=== PATIENT | male | born 1940 | race Caucasian/White ===

== ENCOUNTER 2020-10-06 14:06 | Inpatient (IN) ==
[2020-10-06] MEDS ORDERED: *HR* Warfarin 5 MG TABLET PO SCH (20:15)
[2020-10-07 06:38] LABS: Basophils % 0.1 %; Eosinophils # 0.2 K/mcL (0.0-0.6); Eosinophils % 2.9 %; Hematocrit 37.3 % (37.5-50.1); Hemoglobin 12.1 g/dL (12.9-16.9); Immature Granulocytes % 0.6 % (0-4); Lymphocytes # 1.1 K/mcL (0.6-4.6); Lymphocytes % 13.6 %; Mean Corpuscular HGB Conc 32.4 g/dL (31.6-35.5); Mean Corpuscular Hemoglobin 30.8 pg (28.0-33.3); Mean Corpuscular Volume 94.9 fL (83.0-100.0); Mean Platelet Volume 12.9 fL (9.4-12.4); Monocytes # 0.8 K/mcL (0.0-1.3); Monocytes % 9.3 %; Neutrophils # 6.1 K/mcL (1.6-8.9); Platelet Count 187 K/mcL (140-400); Red Blood Count 3.93 M/mcL (4.19-5.50); Red Cell Distribution Width 14.9 % (11.5-14.5); Segmented Neutrophils % 73.5 %; White Blood Count 8.3 K/mcL (4.3-11.1)
[2020-10-07 06:56] LABS: BUN/Creatinine Ratio 19 (6-26); Blood Urea Nitrogen 24 mg/dL (8-23); Calcium 8.3 mg/dL (8.6-10.3); Carbon Dioxide 28 mEq/L (23-29); Chloride 104 mEq/L (98-107); Glucose 120 mg/dL (70-105); Osmolality,Calculated 299 (280-300); Potassium 3.9 mEq/L (3.5-5.1); Sodium 142 mEq/L (136-145); eGFR For African Americans > 60 (> 60); eGFR For Non-African Americans 56 (> 60)
[2020-10-07] MEDS ORDERED: Warfarin perPT PO PRN (07:59)
[2020-10-07] MEDS: Zinc Sulfate 220 MG CAPSULE PO SCH (08:50)
[2020-10-07] MEDS: Ascorbic Acid 500 MG TABLET PO SCH (08:50)
[2020-10-07] MEDS: Metoprolol XL (24 HR) Succ 50 MG TAB.ER.24H PO SCH (08:50)
[2020-10-07] MEDS: Cholecalciferol (D-3) 1,000 UNIT (25MCG) TABLET PO SCH (08:50)
[2020-10-07] MEDS: Aspirin Enteric Coated 81 MG Tablet PO SCH (08:50)
[2020-10-07] MEDS: Multivit/Ca/Min/Fe/FA 1 TAB TABLET PO SCH (08:50)
[2020-10-07] MEDS: BuPROPion SR (12 HR) 150 MG TABLET PO SCH (08:51)
[2020-10-07] MEDS: amLODIPine 5 MG TABLET PO SCH (08:51)
[2020-10-07] MEDS: *HR* Metformin 500 MG TABLET PO SCH ×2 (08:53→11:51)
[2020-10-07 11:07] LABS: INR 2.7; Prothrombin Time 30.5 Seconds (9.4-12.1)
[2020-10-07] MEDS ORDERED: *HR* Warfarin 2 MG TABLET PO ONE (18:00)
[2020-10-07] MEDS ORDERED: *HR* Warfarin 2.5 MG TABLET PO ONE (18:00)
[2020-10-08] MEDS: Ondansetron ODT 4 MG TAB.RAPDIS SL PRN ×2 (06:24→20:46)
[2020-10-08] MEDS: Aspirin Enteric Coated 81 MG Tablet PO SCH (09:20)
[2020-10-08] MEDS: Cholecalciferol (D-3) 1,000 UNIT (25MCG) TABLET PO SCH (09:20)
[2020-10-08] MEDS: Ascorbic Acid 500 MG TABLET PO SCH (09:20)
[2020-10-08] MEDS: Metoprolol XL (24 HR) Succ 50 MG TAB.ER.24H PO SCH (09:20)
[2020-10-08] MEDS: BuPROPion SR (12 HR) 150 MG TABLET PO SCH (09:21)
[2020-10-08] MEDS: amLODIPine 5 MG TABLET PO SCH (09:21)
[2020-10-08] MEDS: Zinc Sulfate 220 MG CAPSULE PO SCH (09:21)
[2020-10-08] MEDS: Multivit/Ca/Min/Fe/FA 1 TAB TABLET PO SCH (09:21)
[2020-10-08 09:46] LABS: INR 3.1; Prothrombin Time 34.8 Seconds (9.4-12.1)
[2020-10-08] MEDS ORDERED: *HR* Dextrose 50 % in Water (Vial) 50 ML VIAL IVP PRN (10:57)
[2020-10-08] MEDS ORDERED: Dextrose Gel 15 GM/37.5 ML TUBE PO PRN ×2 (10:57)
[2020-10-08] MEDS ORDERED: D5% in Water 1,000 ML IVC PRN (10:57)
[2020-10-08 12:17] LABS: Albumin 3.3 g/dL (3.5-5.7); Albumin/Globulin Ratio 1.3 (1.1-2.2); Bilirubin,Total 1.4 mg/dL (0.3-1.0); Calcium 8.8 mg/dL (8.6-10.3); Globulin 2.6 g/dL (2.4-3.5); Potassium 4.4 mEq/L (3.5-5.1); Total Protein 5.9 g/dL (6.4-8.9)
[2020-10-08] MEDS: Insulin LISPRO 300 UNITS/3 ML VIAL SUBQ SCH ×2 (12:30→17:15)
[2020-10-08] MEDS ORDERED: *HR* Warfarin 7.5 MG TABLET PO SCH (18:00)
[2020-10-09 07:41] LABS: INR 3.8; Prothrombin Time 42.1 Seconds (9.4-12.1)
[2020-10-09] MEDS: amLODIPine 5 MG TABLET PO SCH (09:07)
[2020-10-09] MEDS: Metoprolol XL (24 HR) Succ 50 MG TAB.ER.24H PO SCH (09:07)
[2020-10-09] MEDS: Zinc Sulfate 220 MG CAPSULE PO SCH (09:08)
[2020-10-09] MEDS: BuPROPion SR (12 HR) 150 MG TABLET PO SCH (09:08)
[2020-10-09] MEDS: Multivit/Ca/Min/Fe/FA 1 TAB TABLET PO SCH (09:08)
[2020-10-09] MEDS: Ascorbic Acid 500 MG TABLET PO SCH (09:08)
[2020-10-09] MEDS: Aspirin Enteric Coated 81 MG Tablet PO SCH (09:08)
[2020-10-09] MEDS: Cholecalciferol (D-3) 1,000 UNIT (25MCG) TABLET PO SCH (09:08)
[2020-10-09] MEDS: Insulin LISPRO 300 UNITS/3 ML VIAL SUBQ SCH ×3 (09:09→18:01)
[2020-10-10 06:26] LABS: INR 2.7
[2020-10-10 06:27] LABS: Prothrombin Time 29.9 Seconds (9.4-12.1)
[2020-10-10] MEDS: Insulin LISPRO 300 UNITS/3 ML VIAL SUBQ SCH ×3 (08:58→16:56)
[2020-10-10] MEDS: Zinc Sulfate 220 MG CAPSULE PO SCH (09:00)
[2020-10-10] MEDS: Metoprolol XL (24 HR) Succ 50 MG TAB.ER.24H PO SCH (09:00)
[2020-10-10] MEDS: amLODIPine 5 MG TABLET PO SCH (09:00)
[2020-10-10] MEDS: BuPROPion SR (12 HR) 150 MG TABLET PO SCH (09:00)
[2020-10-10] MEDS: Ascorbic Acid 500 MG TABLET PO SCH (09:00)
[2020-10-10] MEDS: Cholecalciferol (D-3) 1,000 UNIT (25MCG) TABLET PO SCH (09:00)
[2020-10-10] MEDS: Aspirin Enteric Coated 81 MG Tablet PO SCH (09:00)
[2020-10-10] MEDS: Multivit/Ca/Min/Fe/FA 1 TAB TABLET PO SCH (09:01)
[2020-10-11 08:16] LABS: INR 2.5
[2020-10-11] MEDS: Insulin LISPRO 300 UNITS/3 ML VIAL SUBQ SCH ×3 (09:48→17:03)
[2020-10-11] MEDS: Zinc Sulfate 220 MG CAPSULE PO SCH (10:03)
[2020-10-11] MEDS: BuPROPion SR (12 HR) 150 MG TABLET PO SCH (10:03)
[2020-10-11] MEDS: Ascorbic Acid 500 MG TABLET PO SCH (10:03)
[2020-10-11] MEDS: Cholecalciferol (D-3) 1,000 UNIT (25MCG) TABLET PO SCH (10:03)
[2020-10-11] MEDS: Multivit/Ca/Min/Fe/FA 1 TAB TABLET PO SCH (10:03)
[2020-10-11] MEDS: Aspirin Enteric Coated 81 MG Tablet PO SCH (10:03)
[2020-10-11] MEDS: Metoprolol XL (24 HR) Succ 50 MG TAB.ER.24H PO SCH (10:06)
[2020-10-11] MEDS: amLODIPine 5 MG TABLET PO SCH (10:06)
[2020-10-11] MEDS ORDERED: Sennosides/Docusate Sodium TABLET PO ONE (13:16)
[2020-10-11] MEDS ORDERED: *HR* Warfarin 1 MG TABLET PO ONE (18:00)
[2020-10-12 06:58] LABS: INR 2.2; Prothrombin Time 24.9 Seconds (9.4-12.1)
[2020-10-12] MEDS: Insulin LISPRO 300 UNITS/3 ML VIAL SUBQ SCH ×3 (08:40→16:42)
[2020-10-12] MEDS: Aspirin Enteric Coated 81 MG Tablet PO SCH (08:40)
[2020-10-12] MEDS: Ascorbic Acid 500 MG TABLET PO SCH (08:40)
[2020-10-12] MEDS: Cholecalciferol (D-3) 1,000 UNIT (25MCG) TABLET PO SCH (08:40)
[2020-10-12] MEDS: Metoprolol XL (24 HR) Succ 50 MG TAB.ER.24H PO SCH (08:41)
[2020-10-12] MEDS: BuPROPion SR (12 HR) 150 MG TABLET PO SCH (08:41)
[2020-10-12] MEDS: amLODIPine 5 MG TABLET PO SCH (08:41)
[2020-10-12] MEDS: Zinc Sulfate 220 MG CAPSULE PO SCH (08:41)
[2020-10-12] MEDS: Multivit/Ca/Min/Fe/FA 1 TAB TABLET PO SCH (08:41)
[2020-10-12] MEDS ORDERED: Bisacodyl 10 MG RECTAL SUPPOSITORY RC PRN (16:29)
[2020-10-12] MEDS ORDERED: *HR* Warfarin 1 MG TABLET PO ONE (18:00)
[2020-10-12] MEDS: polyethylene glycoL 3350 17 GM POWD.PACK PO PRN (22:20)
[2020-10-12] MEDS: Ondansetron ODT 4 MG TAB.RAPDIS SL PRN (22:23)
[2020-10-13 07:19] LABS: INR 2.2; Prothrombin Time 25.1 Seconds (9.4-12.1)
[2020-10-13 08:59] LABS: Basophils % 0.3 %; Eosinophils # 0.5 K/mcL (0.0-0.6); Hematocrit 37.2 % (37.5-50.1); Hemoglobin 12.2 g/dL (12.9-16.9); Immature Granulocytes % 0.2 % (0-4); Lymphocytes # 1.4 K/mcL (0.6-4.6); Lymphocytes % 21.5 %; Mean Corpuscular HGB Conc 32.8 g/dL (31.6-35.5); Mean Corpuscular Volume 94.7 fL (83.0-100.0); Monocytes # 0.6 K/mcL (0.0-1.3); Monocytes % 8.7 %; Platelet Count 111 K/mcL (140-400); Red Blood Count 3.93 M/mcL (4.19-5.50); Red Cell Distribution Width 15.4 % (11.5-14.5); Segmented Neutrophils % 62.3 %; White Blood Count 6.4 K/mcL (4.3-11.1)
[2020-10-13 09:07] LABS: BUN/Creatinine Ratio 20 (6-26); Blood Urea Nitrogen 26 mg/dL (8-23); Carbon Dioxide 31 mEq/L (23-29); Chloride 103 mEq/L (98-107); Glucose 125 mg/dL (70-105); Osmolality,Calculated 296 (280-300); Potassium 4.1 mEq/L (3.5-5.1); Sodium 140 mEq/L (136-145); eGFR For African Americans > 60 (> 60); eGFR For Non-African Americans 54 (> 60)
[2020-10-13] MEDS: Insulin LISPRO 300 UNITS/3 ML VIAL SUBQ SCH ×3 (10:35→16:35)
[2020-10-13] MEDS: Ascorbic Acid 500 MG TABLET PO SCH (10:37)
[2020-10-13] MEDS: BuPROPion SR (12 HR) 150 MG TABLET PO SCH (10:37)
[2020-10-13] MEDS: Cholecalciferol (D-3) 1,000 UNIT (25MCG) TABLET PO SCH (10:37)
[2020-10-13] MEDS: amLODIPine 5 MG TABLET PO SCH (10:37)
[2020-10-13] MEDS: Multivit/Ca/Min/Fe/FA 1 TAB TABLET PO SCH (10:37)
[2020-10-13] MEDS: Aspirin Enteric Coated 81 MG Tablet PO SCH (10:37)
[2020-10-13] MEDS: Metoprolol XL (24 HR) Succ 50 MG TAB.ER.24H PO SCH (10:38)
[2020-10-13] MEDS: Zinc Sulfate 220 MG CAPSULE PO SCH (10:38)
[2020-10-13] MEDS ORDERED: *HR* Warfarin 1 MG TABLET PO ONE (18:00)
[2020-10-14 07:16] LABS: INR 2.2; Prothrombin Time 25.2 Seconds (9.4-12.1)
[2020-10-14] MEDS: amLODIPine 5 MG TABLET PO SCH (09:37)
[2020-10-14] MEDS: Zinc Sulfate 220 MG CAPSULE PO SCH (09:38)
[2020-10-14] MEDS: Multivit/Ca/Min/Fe/FA 1 TAB TABLET PO SCH (09:38)
[2020-10-14] MEDS: Cholecalciferol (D-3) 1,000 UNIT (25MCG) TABLET PO SCH (09:38)
[2020-10-14] MEDS: Aspirin Enteric Coated 81 MG Tablet PO SCH (09:39)
[2020-10-14] MEDS: BuPROPion SR (12 HR) 150 MG TABLET PO SCH (09:39)
[2020-10-14] MEDS: Ascorbic Acid 500 MG TABLET PO SCH (09:39)
[2020-10-14] MEDS: Metoprolol XL (24 HR) Succ 50 MG TAB.ER.24H PO SCH (09:39)
[2020-10-14] MEDS: Insulin LISPRO 300 UNITS/3 ML VIAL SUBQ SCH ×3 (09:44→18:37)
[2020-10-14] MEDS ORDERED: *HR* Warfarin 1 MG TABLET PO ONE (18:00)
[2020-10-15 06:54] LABS: Prothrombin Time 22.7 Seconds (9.4-12.1)
[2020-10-15] MEDS: Insulin LISPRO 300 UNITS/3 ML VIAL SUBQ SCH ×3 (08:05→16:35)
[2020-10-15] MEDS: Metoprolol XL (24 HR) Succ 50 MG TAB.ER.24H PO SCH (09:58)
[2020-10-15] MEDS: Multivit/Ca/Min/Fe/FA 1 TAB TABLET PO SCH (09:58)
[2020-10-15] MEDS: amLODIPine 5 MG TABLET PO SCH (09:58)
[2020-10-15] MEDS: Aspirin Enteric Coated 81 MG Tablet PO SCH (09:58)
[2020-10-15] MEDS: Ascorbic Acid 500 MG TABLET PO SCH (09:59)
[2020-10-15] MEDS: Cholecalciferol (D-3) 1,000 UNIT (25MCG) TABLET PO SCH (09:59)
[2020-10-15] MEDS: Zinc Sulfate 220 MG CAPSULE PO SCH (09:59)
[2020-10-15] MEDS: BuPROPion SR (12 HR) 150 MG TABLET PO SCH (09:59)
[2020-10-15] MEDS ORDERED: methocarbamoL 500 MG TABLET PO PRN (11:07)
[2020-10-15] MEDS ORDERED: traZODone 50 MG TABLET PO PRN (14:16)
[2020-10-15 14:42] LABS: Basophils % 0.5 %; Eosinophils # 0.5 K/mcL (0.0-0.6); Eosinophils % 8.2 %; Hematocrit 39.4 % (37.5-50.1); Hemoglobin 12.9 g/dL (12.9-16.9); Immature Granulocytes % 0.5 % (0-4); Lymphocytes # 1.6 K/mcL (0.6-4.6); Lymphocytes % 24.8 %; Mean Corpuscular HGB Conc 32.7 g/dL (31.6-35.5); Mean Corpuscular Hemoglobin 31.2 pg (28.0-33.3); Mean Corpuscular Volume 95.2 fL (83.0-100.0); Mean Platelet Volume 12.2 fL (9.4-12.4); Monocytes # 0.5 K/mcL (0.0-1.3); Monocytes % 7.2 %; Neutrophils # 3.7 K/mcL (1.6-8.9); Platelet Count 118 K/mcL (140-400); Red Blood Count 4.14 M/mcL (4.19-5.50); Red Cell Distribution Width 16.1 % (11.5-14.5); Segmented Neutrophils % 58.8 %; White Blood Count 6.3 K/mcL (4.3-11.1)
[2020-10-15 15:00] LABS: Calcium 8.9 mg/dL (8.6-10.3); Magnesium 1.9 mg/dL (1.6-2.6); Potassium 4.3 mEq/L (3.5-5.1)
[2020-10-15] MEDS ORDERED: *HR* Warfarin 1 MG TABLET PO ONE (18:00)
[2020-10-16] MEDS: Multivit/Ca/Min/Fe/FA 1 TAB TABLET PO SCH (07:59)
[2020-10-16] MEDS: Ascorbic Acid 500 MG TABLET PO SCH (07:59)
[2020-10-16] MEDS: Zinc Sulfate 220 MG CAPSULE PO SCH (07:59)
[2020-10-16] MEDS: Aspirin Enteric Coated 81 MG Tablet PO SCH (07:59)
[2020-10-16] MEDS: Cholecalciferol (D-3) 1,000 UNIT (25MCG) TABLET PO SCH (07:59)
[2020-10-16] MEDS: BuPROPion SR (12 HR) 150 MG TABLET PO SCH (08:00)
[2020-10-16] MEDS: Insulin LISPRO 300 UNITS/3 ML VIAL SUBQ SCH ×3 (08:03→17:15)
[2020-10-16] MEDS: amLODIPine 5 MG TABLET PO SCH (08:04)
[2020-10-16] MEDS: Metoprolol XL (24 HR) Succ 50 MG TAB.ER.24H PO SCH (08:05)
[2020-10-16 08:09] LABS: INR 1.8; Prothrombin Time 20.2 Seconds (9.4-12.1)
[2020-10-16] MEDS: Ondansetron ODT 4 MG TAB.RAPDIS SL PRN (09:00)
[2020-10-16] MEDS: Metoprolol XL (24 HR) Succ 25 MG TAB.ER.24H PO SCH (10:11)
[2020-10-16] MEDS ORDERED: *HR* Warfarin 2 MG TABLET PO ONE (18:00)
[2020-10-16] MEDS: polyethylene glycoL 3350 17 GM POWD.PACK PO PRN (21:24)
[2020-10-17 06:58] LABS: INR 1.9; Prothrombin Time 21.3 Seconds (9.4-12.1)
[2020-10-17] MEDS: Insulin LISPRO 300 UNITS/3 ML VIAL SUBQ SCH ×3 (07:32→16:28)
[2020-10-17] MEDS: amLODIPine 5 MG TABLET PO SCH (09:22)
[2020-10-17] MEDS: Multivit/Ca/Min/Fe/FA 1 TAB TABLET PO SCH (09:22)
[2020-10-17] MEDS: BuPROPion SR (12 HR) 150 MG TABLET PO SCH (09:22)
[2020-10-17] MEDS: Zinc Sulfate 220 MG CAPSULE PO SCH (09:23)
[2020-10-17] MEDS: Aspirin Enteric Coated 81 MG Tablet PO SCH (09:23)
[2020-10-17] MEDS: Ascorbic Acid 500 MG TABLET PO SCH (09:23)
[2020-10-17] MEDS: Cholecalciferol (D-3) 1,000 UNIT (25MCG) TABLET PO SCH (09:23)
[2020-10-17] MEDS: Metoprolol XL (24 HR) Succ 25 MG TAB.ER.24H PO SCH (09:23)
[2020-10-17] MEDS ORDERED: *HR* Warfarin 2 MG TABLET PO ONE (18:00)
[2020-10-17] MEDS: Ondansetron ODT 4 MG TAB.RAPDIS SL PRN (20:02)
[2020-10-18 07:23] LABS: Prothrombin Time 22.6 Seconds (9.4-12.1)
[2020-10-18] MEDS: Insulin LISPRO 300 UNITS/3 ML VIAL SUBQ SCH ×3 (07:25→16:25)
[2020-10-18] MEDS: Aspirin Enteric Coated 81 MG Tablet PO SCH (09:00)
[2020-10-18] MEDS: Multivit/Ca/Min/Fe/FA 1 TAB TABLET PO SCH (09:00)
[2020-10-18] MEDS: Zinc Sulfate 220 MG CAPSULE PO SCH (09:00)
[2020-10-18] MEDS: Cholecalciferol (D-3) 1,000 UNIT (25MCG) TABLET PO SCH (09:01)
[2020-10-18] MEDS: amLODIPine 5 MG TABLET PO SCH (09:01)
[2020-10-18] MEDS: Ascorbic Acid 500 MG TABLET PO SCH (09:01)
[2020-10-18] MEDS: BuPROPion SR (12 HR) 150 MG TABLET PO SCH (09:01)
[2020-10-18] MEDS: Metoprolol XL (24 HR) Succ 25 MG TAB.ER.24H PO SCH (09:01)
[2020-10-18] MEDS ORDERED: *HR* Warfarin 2 MG TABLET PO ONE (18:00)
[2020-10-19 07:47] LABS: INR 2.1; Prothrombin Time 23.8 Seconds (9.4-12.1)
[2020-10-19] MEDS: Cholecalciferol (D-3) 1,000 UNIT (25MCG) TABLET PO SCH (08:31)
[2020-10-19] MEDS: Metoprolol XL (24 HR) Succ 25 MG TAB.ER.24H PO SCH (08:31)
[2020-10-19] MEDS: BuPROPion SR (12 HR) 150 MG TABLET PO SCH (08:31)
[2020-10-19] MEDS: Ascorbic Acid 500 MG TABLET PO SCH (08:31)
[2020-10-19] MEDS: amLODIPine 5 MG TABLET PO SCH (08:31)
[2020-10-19] MEDS: Aspirin Enteric Coated 81 MG Tablet PO SCH (08:32)
[2020-10-19] MEDS: Insulin LISPRO 300 UNITS/3 ML VIAL SUBQ SCH ×3 (08:32→16:39)
[2020-10-19] MEDS: Multivit/Ca/Min/Fe/FA 1 TAB TABLET PO SCH (08:32)
[2020-10-19] MEDS: Zinc Sulfate 220 MG CAPSULE PO SCH (08:32)
[2020-10-19] MEDS: Ondansetron ODT 4 MG TAB.RAPDIS SL PRN ×2 (09:22→23:40)
[2020-10-19] MEDS ORDERED: Bisacodyl 10 MG RECTAL SUPPOSITORY RC ONE (09:54)
[2020-10-19] MEDS ORDERED: *HR* Warfarin 2 MG TABLET PO ONE (18:00)
[2020-10-20] MEDS ORDERED: Ondansetron ODT 4 MG TAB.RAPDIS SL PRN (01:34)
[2020-10-20] MEDS: Insulin LISPRO 300 UNITS/3 ML VIAL SUBQ SCH ×3 (08:52→16:40)
[2020-10-20] MEDS: Aspirin Enteric Coated 81 MG Tablet PO SCH (10:44)
[2020-10-20] MEDS: amLODIPine 5 MG TABLET PO SCH (10:44)
[2020-10-20] MEDS: Ascorbic Acid 500 MG TABLET PO SCH (10:45)
[2020-10-20] MEDS: Cholecalciferol (D-3) 1,000 UNIT (25MCG) TABLET PO SCH (10:45)
[2020-10-20] MEDS: Multivit/Ca/Min/Fe/FA 1 TAB TABLET PO SCH (10:45)
[2020-10-20] MEDS: Zinc Sulfate 220 MG CAPSULE PO SCH (10:45)
[2020-10-20] MEDS: Metoprolol XL (24 HR) Succ 25 MG TAB.ER.24H PO SCH ×2 (10:45→14:02)
[2020-10-20] MEDS: BuPROPion SR (12 HR) 150 MG TABLET PO SCH (10:45)
[2020-10-20 12:05] LABS: Basophils % 0.2 %; Eosinophils # 0.1 K/mcL (0.0-0.6); Eosinophils % 1.6 %; Hematocrit 40.1 % (37.5-50.1); Hemoglobin 13.2 g/dL (12.9-16.9); Immature Granulocytes % 0.4 % (0-4); Lymphocytes # 0.9 K/mcL (0.6-4.6); Lymphocytes % 10.6 %; Mean Corpuscular HGB Conc 32.9 g/dL (31.6-35.5); Mean Corpuscular Hemoglobin 31.6 pg (28.0-33.3); Mean Corpuscular Volume 95.9 fL (83.0-100.0); Mean Platelet Volume 12.1 fL (9.4-12.4); Monocytes # 0.7 K/mcL (0.0-1.3); Monocytes % 8.5 %; Neutrophils # 6.4 K/mcL (1.6-8.9); Platelet Count 115 K/mcL (140-400); Red Blood Count 4.18 M/mcL (4.19-5.50); Segmented Neutrophils % 78.7 %; White Blood Count 8.1 K/mcL (4.3-11.1)
[2020-10-20 12:21] LABS: Albumin 3.4 g/dL (3.5-5.7); Albumin/Globulin Ratio 1.4 (1.1-2.2); Bilirubin,Total 1.5 mg/dL (0.3-1.0); Calcium 8.9 mg/dL (8.6-10.3); Globulin 2.5 g/dL (2.4-3.5); Potassium 4.5 mEq/L (3.5-5.1); Total Protein 5.9 g/dL (6.4-8.9)
[2020-10-20] MEDS ORDERED: 0.9 % Sodium Chloride 1,000 ML IV ONE ×2 (13:13→13:21)
[2020-10-20] MEDS ORDERED: *HR* Warfarin 2 MG TABLET PO ONE (18:00)
[2020-10-20] MEDS: 0.9 % Sodium Chloride 1,000 ML IVC SCH (19:27)
[2020-10-20] MEDS: Famotidine 20 MG TABLET PO SCH (20:40)
[2020-10-21] MEDS: 0.9 % Sodium Chloride 1,000 ML IVC SCH (04:00)
[2020-10-21] MEDS: Metoprolol XL (24 HR) Succ 25 MG TAB.ER.24H PO SCH (08:19)
[2020-10-21] MEDS: amLODIPine 5 MG TABLET PO SCH (08:19)
[2020-10-21] MEDS: Multivit/Ca/Min/Fe/FA 1 TAB TABLET PO SCH (08:19)
[2020-10-21] MEDS: Ascorbic Acid 500 MG TABLET PO SCH (08:19)
[2020-10-21] MEDS: Aspirin Enteric Coated 81 MG Tablet PO SCH (08:19)
[2020-10-21] MEDS: Cholecalciferol (D-3) 1,000 UNIT (25MCG) TABLET PO SCH (08:19)
[2020-10-21] MEDS: BuPROPion SR (12 HR) 150 MG TABLET PO SCH (08:19)
[2020-10-21] MEDS: Famotidine 20 MG TABLET PO SCH (08:19)
[2020-10-21] MEDS: Zinc Sulfate 220 MG CAPSULE PO SCH (08:19)
[2020-10-21] MEDS: Insulin LISPRO 300 UNITS/3 ML VIAL SUBQ SCH ×3 (08:20→17:01)
[2020-10-21 09:31] LABS: Basophils % 0.3 %; Eosinophils # 0.5 K/mcL (0.0-0.6); Eosinophils % 6.9 %; Hemoglobin 11.8 g/dL (12.9-16.9); Immature Granulocytes % 0.3 % (0-4); Lymphocytes # 1.3 K/mcL (0.6-4.6); Mean Corpuscular HGB Conc 31.9 g/dL (31.6-35.5); Mean Corpuscular Hemoglobin 31.6 pg (28.0-33.3); Mean Corpuscular Volume 98.9 fL (83.0-100.0); Mean Platelet Volume 12.4 fL (9.4-12.4); Monocytes # 0.8 K/mcL (0.0-1.3); Monocytes % 9.9 %; Platelet Count 114 K/mcL (140-400); Red Blood Count 3.74 M/mcL (4.19-5.50); Red Cell Distribution Width 17.4 % (11.5-14.5); Segmented Neutrophils % 65.6 %; White Blood Count 7.6 K/mcL (4.3-11.1)
[2020-10-21 09:47] LABS: Calcium 8.1 mg/dL (8.6-10.3); Potassium 3.9 mEq/L (3.5-5.1)
[2020-10-21] MEDS: Sucralfate 1 GM TABLET PO SCH ×2 (16:26→20:57)
[2020-10-21] MEDS ORDERED: *HR* Warfarin 2 MG TABLET PO ONE (18:00)
[2020-10-21] MEDS: Pantoprazole 40 MG VIAL IVP SCH (18:16)
[2020-10-22] MEDS: Sucralfate 1 GM TABLET PO SCH ×2 (05:40→13:35)
[2020-10-22] MEDS: Pantoprazole 40 MG VIAL IVP SCH (05:40)
[2020-10-22 07:24] LABS: INR 2.8; Prothrombin Time 31.2 Seconds (9.4-12.1)
[2020-10-22 07:35] VITALS: BP 122/92
[2020-10-22] MEDS: Insulin LISPRO 300 UNITS/3 ML VIAL SUBQ SCH ×2 (07:53→11:21)
[2020-10-22] MEDS: Multivit/Ca/Min/Fe/FA 1 TAB TABLET PO SCH (08:08)
[2020-10-22] MEDS: amLODIPine 5 MG TABLET PO SCH (08:08)
[2020-10-22] MEDS: Aspirin Enteric Coated 81 MG Tablet PO SCH (08:08)
[2020-10-22] MEDS: Metoprolol XL (24 HR) Succ 25 MG TAB.ER.24H PO SCH (08:08)
[2020-10-22] MEDS: Cholecalciferol (D-3) 1,000 UNIT (25MCG) TABLET PO SCH (08:09)
[2020-10-22] MEDS: Zinc Sulfate 220 MG CAPSULE PO SCH (08:09)
[2020-10-22] MEDS: BuPROPion SR (12 HR) 150 MG TABLET PO SCH (08:09)
[2020-10-22] MEDS: Ascorbic Acid 500 MG TABLET PO SCH (08:09)
[2020-10-22 08:50] LABS: Hematocrit 35.1 % (37.5-50.1); Hemoglobin 11.4 g/dL (12.9-16.9); Mean Corpuscular HGB Conc 32.5 g/dL (31.6-35.5); Mean Corpuscular Hemoglobin 31.6 pg (28.0-33.3); Mean Corpuscular Volume 97.2 fL (83.0-100.0); Mean Platelet Volume 12.2 fL (9.4-12.4); Platelet Count 117 K/mcL (140-400); Red Blood Count 3.61 M/mcL (4.19-5.50); Red Cell Distribution Width 16.8 % (11.5-14.5); White Blood Count 6.8 K/mcL (4.3-11.1)
[2020-10-22 08:57] LABS: BUN/Creatinine Ratio 17 (6-26); Blood Urea Nitrogen 21 mg/dL (8-23); Calcium 8.1 mg/dL (8.6-10.3); Carbon Dioxide 28 mEq/L (23-29); Chloride 107 mEq/L (98-107); Glucose 106 mg/dL (70-105); Osmolality,Calculated 301 (280-300); Potassium 3.8 mEq/L (3.5-5.1); Sodium 144 mEq/L (136-145); eGFR For African Americans > 60 (> 60); eGFR For Non-African Americans 55 (> 60)
[2020-10-22] MEDS ORDERED: *HR* Promethazine 25 MG/ML VIAL IM ONE (09:45)
[2020-10-22] MEDS ORDERED: 0.9 % Sodium Chloride 1,000 ML IVC SCH (12:45)
[2020-10-22] MEDS ORDERED: *HR* Warfarin 1 MG TABLET PO ONE (18:00)
== END 2020-10-22 16:32 | disposition short-term general hospital (02) | DRG 392 ==
LOC: INPPIK 18:55
PROVIDERS: ADMIT Family Medicine; ATTEND Family Medicine

== ENCOUNTER 2020-10-26 17:17 | Inpatient (IN) ==
[2020-10-26] MEDS ORDERED: *HR* Warfarin 5 MG TABLET PO SCH (19:00)
[2020-10-26] MEDS: Cholecalciferol (D-3) 1,000 UNIT (25MCG) TABLET PO SCH (20:24)
[2020-10-27 07:03] LABS: Basophils % 0.7 %; Eosinophils # 0.4 K/mcL (0.0-0.6); Eosinophils % 6.8 %; Hematocrit 34.9 % (37.5-50.1); Hemoglobin 11.1 g/dL (12.9-16.9); Immature Granulocytes % 0.7 % (0-4); Lymphocytes # 1.1 K/mcL (0.6-4.6); Mean Corpuscular HGB Conc 31.8 g/dL (31.6-35.5); Mean Corpuscular Hemoglobin 31.1 pg (28.0-33.3); Mean Corpuscular Volume 97.8 fL (83.0-100.0); Mean Platelet Volume 12.2 fL (9.4-12.4); Monocytes # 0.6 K/mcL (0.0-1.3); Monocytes % 9.2 %; Neutrophils # 3.8 K/mcL (1.6-8.9); Platelet Count 132 K/mcL (140-400); Red Blood Count 3.57 M/mcL (4.19-5.50); Red Cell Distribution Width 17.2 % (11.5-14.5); Segmented Neutrophils % 63.6 %
[2020-10-27 07:30] LABS: BUN/Creatinine Ratio 15 (6-26); Blood Urea Nitrogen 19 mg/dL (8-23); Calcium 7.9 mg/dL (8.6-10.3); Carbon Dioxide 29 mEq/L (23-29); Chloride 110 mEq/L (98-107); Glucose 106 mg/dL (70-105); Osmolality,Calculated 307 (280-300); Potassium 3.7 mEq/L (3.5-5.1); Sodium 147 mEq/L (136-145); eGFR For African Americans > 60 (> 60); eGFR For Non-African Americans 54 (> 60)
[2020-10-27 08:17] LABS: INR 4.2
[2020-10-27] MEDS: Tiotropium 10 INH DOSE IH SCH (08:21)
[2020-10-27] MEDS ORDERED: Zinc Sulfate 220 MG CAPSULE PO SCH (09:00)
[2020-10-27] MEDS: Cholecalciferol (D-3) 1,000 UNIT (25MCG) TABLET PO SCH ×3 (09:32→22:23)
[2020-10-27] MEDS: *HR* Metformin 500 MG TABLET PO SCH (09:32)
[2020-10-27] MEDS: hydroCHLOROthiazide 25 MG TABLET PO SCH ×2 (09:32→09:59)
[2020-10-27] MEDS: Aspirin Enteric Coated 81 MG Tablet PO SCH (09:33)
[2020-10-27] MEDS: Metoprolol XL (24 HR) Succ 50 MG TAB.ER.24H PO SCH (09:33)
[2020-10-27] MEDS: Multivit/Ca/Min/Fe/FA 1 TAB TABLET PO SCH (09:33)
[2020-10-27] MEDS: amLODIPine 5 MG TABLET PO SCH ×2 (09:33→10:00)
[2020-10-27] MEDS: BuPROPion SR (12 HR) 150 MG TABLET PO SCH (09:33)
[2020-10-27] MEDS ORDERED: Metoclopramide 10 MG/10 ML UD.LIQ PO PRN (09:35)
[2020-10-27] MEDS ORDERED: Bisacodyl 10 MG RECTAL SUPPOSITORY RC PRN (09:51)
[2020-10-27] MEDS ORDERED: polyethylene glycoL 3350 17 GM POWD.PACK PO PRN (09:51)
[2020-10-27] MEDS ORDERED: Ringers Solution, Lactated 500 ML IVC ONE (10:26)
[2020-10-27] MEDS: Metoclopramide 10 MG/10 ML UD.LIQ PO SCH ×3 (14:27→23:57)
[2020-10-27] MEDS: Ondansetron 4 MG/2 ML VIAL IVP PRN (14:29)
[2020-10-27] MEDS ORDERED: Warfarin perPT PO PRN (18:00)
[2020-10-27] MEDS ORDERED: *HR* Warfarin 7.5 MG TABLET PO SCH (18:49)
[2020-10-28] MEDS: Metoclopramide 10 MG/10 ML UD.LIQ PO SCH ×3 (05:29→18:06)
[2020-10-28 06:12] LABS: Phosphorous 2.5 mg/dL (2.7-4.5)
[2020-10-28 06:48] LABS: Prothrombin Time 44.5 Seconds (9.4-12.1)
[2020-10-28] MEDS: Aspirin Enteric Coated 81 MG Tablet PO SCH (08:18)
[2020-10-28] MEDS: *HR* Metformin 500 MG TABLET PO SCH (08:18)
[2020-10-28] MEDS: BuPROPion SR (12 HR) 150 MG TABLET PO SCH (08:18)
[2020-10-28] MEDS: Metoprolol XL (24 HR) Succ 50 MG TAB.ER.24H PO SCH (08:18)
[2020-10-28] MEDS: Cholecalciferol (D-3) 1,000 UNIT (25MCG) TABLET PO SCH ×2 (08:22→20:55)
[2020-10-28] MEDS: Sennosides/Docusate Sodium TABLET PO SCH ×2 (08:22→20:55)
[2020-10-28] MEDS: Multivit/Ca/Min/Fe/FA 1 TAB TABLET PO SCH (08:22)
[2020-10-28] MEDS: Tiotropium 10 INH DOSE IH SCH (09:29)
[2020-10-28 09:30] LABS: Alanine Aminotransferase 10 Units/L (7-52); Albumin/Globulin Ratio 1.3 (1.1-2.2); Alkaline Phosphatase 54 Units/L (34-104); Aspartate Amino Transferase 16 Units/L (13-39); BUN/Creatinine Ratio 16 (6-26); Blood Urea Nitrogen 20 mg/dL (8-23); Carbon Dioxide 28 mEq/L (23-29); Chloride 109 mEq/L (98-107); Globulin 2.4 g/dL (2.4-3.5); Glucose 137 mg/dL (70-105); Osmolality,Calculated 309 (280-300); Potassium 4.2 mEq/L (3.5-5.1); Sodium 147 mEq/L (136-145); Total Protein 5.4 g/dL (6.4-8.9); eGFR For African Americans > 60 (> 60); eGFR For Non-African Americans 54 (> 60)
[2020-10-28] MEDS ORDERED: Lactulose 200 GM, Sodium Chloride IRRigation 700 ML RC ONE (13:19)
[2020-10-29] MEDS: Metoclopramide 10 MG/10 ML UD.LIQ PO SCH ×3 (01:16→17:11)
[2020-10-29 06:53] LABS: INR 3.2
[2020-10-29] MEDS: *HR* Metformin 500 MG TABLET PO SCH (08:47)
[2020-10-29] MEDS: Sennosides/Docusate Sodium TABLET PO SCH ×2 (08:47→20:55)
[2020-10-29] MEDS: Metoprolol XL (24 HR) Succ 50 MG TAB.ER.24H PO SCH (08:47)
[2020-10-29] MEDS: Aspirin Enteric Coated 81 MG Tablet PO SCH (08:47)
[2020-10-29] MEDS: Cholecalciferol (D-3) 1,000 UNIT (25MCG) TABLET PO SCH ×2 (08:48→20:57)
[2020-10-29] MEDS: Multivit/Ca/Min/Fe/FA 1 TAB TABLET PO SCH (08:48)
[2020-10-29] MEDS: BuPROPion SR (12 HR) 150 MG TABLET PO SCH (08:48)
[2020-10-29] MEDS: Tiotropium 10 INH DOSE IH SCH (10:53)
[2020-10-30 05:19] LABS: Hematocrit RBC Folate 36.5 %
[2020-10-30 08:02] LABS: INR 2.5
[2020-10-30] MEDS: BuPROPion SR (12 HR) 150 MG TABLET PO SCH (08:34)
[2020-10-30] MEDS: Cholecalciferol (D-3) 1,000 UNIT (25MCG) TABLET PO SCH ×2 (08:34→20:24)
[2020-10-30] MEDS: Aspirin Enteric Coated 81 MG Tablet PO SCH (08:34)
[2020-10-30] MEDS: Multivit/Ca/Min/Fe/FA 1 TAB TABLET PO SCH (08:34)
[2020-10-30] MEDS: Sennosides/Docusate Sodium TABLET PO SCH ×2 (08:34→20:24)
[2020-10-30] MEDS: Metoprolol XL (24 HR) Succ 50 MG TAB.ER.24H PO SCH (08:35)
[2020-10-30] MEDS: Metoclopramide 10 MG/10 ML UD.LIQ PO SCH ×2 (08:35→16:59)
[2020-10-30] MEDS: *HR* Metformin 500 MG TABLET PO SCH (08:35)
[2020-10-30] MEDS: Tiotropium 10 INH DOSE IH SCH (09:57)
[2020-10-30] MEDS: Ondansetron 4 MG/2 ML VIAL IVP PRN (11:24)
[2020-10-30] MEDS ORDERED: *HR* Warfarin 1 MG TABLET PO ONE (18:00)
[2020-10-31 07:08] LABS: INR 2.4; Prothrombin Time 26.6 Seconds (9.4-12.1)
[2020-10-31] MEDS ORDERED: Tiotropium 10 INH DOSE IH ONE (08:20)
[2020-10-31] MEDS: Tiotropium 10 INH DOSE IH SCH (08:26)
[2020-10-31] MEDS: Metoprolol XL (24 HR) Succ 50 MG TAB.ER.24H PO SCH (09:10)
[2020-10-31] MEDS: Metoclopramide 10 MG/10 ML UD.LIQ PO SCH ×2 (09:10→18:25)
[2020-10-31] MEDS: BuPROPion SR (12 HR) 150 MG TABLET PO SCH (09:10)
[2020-10-31] MEDS: *HR* Metformin 500 MG TABLET PO SCH (09:10)
[2020-10-31] MEDS: Multivit/Ca/Min/Fe/FA 1 TAB TABLET PO SCH (09:10)
[2020-10-31] MEDS: Sennosides/Docusate Sodium TABLET PO SCH ×2 (09:11→20:37)
[2020-10-31] MEDS: Cholecalciferol (D-3) 1,000 UNIT (25MCG) TABLET PO SCH ×2 (09:11→20:36)
[2020-10-31] MEDS: Aspirin Enteric Coated 81 MG Tablet PO SCH (09:11)
[2020-10-31] MEDS ORDERED: *HR* Warfarin 2 MG TABLET PO ONE (18:00)
[2020-11-01] MEDS: Tiotropium 10 INH DOSE IH SCH (08:31)
[2020-11-01 08:41] LABS: INR 2.2
[2020-11-01] MEDS: Multivit/Ca/Min/Fe/FA 1 TAB TABLET PO SCH (08:45)
[2020-11-01] MEDS: Aspirin Enteric Coated 81 MG Tablet PO SCH (08:45)
[2020-11-01] MEDS: Cholecalciferol (D-3) 1,000 UNIT (25MCG) TABLET PO SCH ×2 (08:45→19:55)
[2020-11-01] MEDS: Sennosides/Docusate Sodium TABLET PO SCH ×2 (08:45→19:54)
[2020-11-01] MEDS: BuPROPion SR (12 HR) 150 MG TABLET PO SCH (08:45)
[2020-11-01] MEDS: *HR* Metformin 500 MG TABLET PO SCH (08:46)
[2020-11-01] MEDS: Metoclopramide 10 MG/10 ML UD.LIQ PO SCH ×2 (08:46→17:07)
[2020-11-01] MEDS: Metoprolol XL (24 HR) Succ 50 MG TAB.ER.24H PO SCH (08:46)
[2020-11-01] MEDS ORDERED: *HR* Warfarin 3 MG TABLET PO ONE (18:00)
[2020-11-02 08:29] LABS: Basophils % 0.6 %; Eosinophils # 0.4 K/mcL (0.0-0.6); Eosinophils % 6.7 %; Hematocrit 35.2 % (37.5-50.1); Hemoglobin 11.4 g/dL (12.9-16.9); Immature Granulocytes % 0.8 % (0-4); Lymphocytes # 1.2 K/mcL (0.6-4.6); Lymphocytes % 18.7 %; Mean Corpuscular HGB Conc 32.4 g/dL (31.6-35.5); Mean Corpuscular Hemoglobin 31.5 pg (28.0-33.3); Mean Corpuscular Volume 97.2 fL (83.0-100.0); Mean Platelet Volume 12.2 fL (9.4-12.4); Monocytes # 0.4 K/mcL (0.0-1.3); Monocytes % 6.2 %; Neutrophils # 4.2 K/mcL (1.6-8.9); Platelet Count 149 K/mcL (140-400); Red Blood Count 3.62 M/mcL (4.19-5.50); Red Cell Distribution Width 16.6 % (11.5-14.5); White Blood Count 6.3 K/mcL (4.3-11.1)
[2020-11-02] MEDS: Tiotropium 10 INH DOSE IH SCH (08:31)
[2020-11-02] MEDS: Metoclopramide 10 MG/10 ML UD.LIQ PO SCH ×2 (08:42→17:15)
[2020-11-02] MEDS: Sennosides/Docusate Sodium TABLET PO SCH ×2 (08:42→20:42)
[2020-11-02] MEDS: Cholecalciferol (D-3) 1,000 UNIT (25MCG) TABLET PO SCH ×2 (08:42→20:43)
[2020-11-02] MEDS: Metoprolol XL (24 HR) Succ 50 MG TAB.ER.24H PO SCH (08:42)
[2020-11-02] MEDS: Aspirin Enteric Coated 81 MG Tablet PO SCH (08:42)
[2020-11-02] MEDS: BuPROPion SR (12 HR) 150 MG TABLET PO SCH (08:43)
[2020-11-02] MEDS: Multivit/Ca/Min/Fe/FA 1 TAB TABLET PO SCH (08:43)
[2020-11-02] MEDS: *HR* Metformin 500 MG TABLET PO SCH (08:43)
[2020-11-02 08:51] LABS: INR 2.5; Prothrombin Time 28.3 Seconds (9.4-12.1)
[2020-11-02 08:52] LABS: BUN/Creatinine Ratio 12 (6-26); Blood Urea Nitrogen 13 mg/dL (8-23); Carbon Dioxide 32 mEq/L (23-29); Chloride 103 mEq/L (98-107); Glucose 104 mg/dL (70-105); Osmolality,Calculated 294 (280-300); Potassium 3.4 mEq/L (3.5-5.1); Sodium 142 mEq/L (136-145); eGFR For African Americans > 60 (> 60); eGFR For Non-African Americans > 60 (> 60)
[2020-11-02 08:58] LABS: Calcium 8.1 mg/dL (8.6-10.3)
[2020-11-02] MEDS ORDERED: *HR* Warfarin 2.5 MG TABLET PO ONE (18:00)
[2020-11-03 06:43] LABS: INR 3.1; Prothrombin Time 34.4 Seconds (9.4-12.1)
[2020-11-03] MEDS: Aspirin Enteric Coated 81 MG Tablet PO SCH (08:50)
[2020-11-03] MEDS: BuPROPion SR (12 HR) 150 MG TABLET PO SCH (08:50)
[2020-11-03] MEDS: Metoprolol XL (24 HR) Succ 25 MG TAB.ER.24H PO SCH (08:50)
[2020-11-03] MEDS: Multivit/Ca/Min/Fe/FA 1 TAB TABLET PO SCH (08:51)
[2020-11-03] MEDS: Sennosides/Docusate Sodium TABLET PO SCH ×2 (08:51→20:11)
[2020-11-03] MEDS: Metoclopramide 10 MG/10 ML UD.LIQ PO SCH ×2 (08:51→17:00)
[2020-11-03] MEDS: Cholecalciferol (D-3) 1,000 UNIT (25MCG) TABLET PO SCH ×2 (08:51→20:11)
[2020-11-03] MEDS: *HR* Metformin 500 MG TABLET PO SCH (08:56)
[2020-11-03] MEDS: Tiotropium 10 INH DOSE IH SCH (10:14)
[2020-11-03] MEDS: Ringers Solution, Lactated 1,000 ML IVC SCH (15:30)
[2020-11-04] MEDS: Ringers Solution, Lactated 1,000 ML IVC SCH ×2 (00:52→16:02)
[2020-11-04] MEDS: Tiotropium 10 INH DOSE IH SCH (07:27)
[2020-11-04] MEDS: Sennosides/Docusate Sodium TABLET PO SCH ×3 (08:51→21:13)
[2020-11-04] MEDS: Multivit/Ca/Min/Fe/FA 1 TAB TABLET PO SCH ×2 (08:51→11:14)
[2020-11-04] MEDS: Cholecalciferol (D-3) 1,000 UNIT (25MCG) TABLET PO SCH ×3 (08:52→21:13)
[2020-11-04] MEDS: BuPROPion SR (12 HR) 150 MG TABLET PO SCH ×2 (08:52→11:14)
[2020-11-04] MEDS: Aspirin Enteric Coated 81 MG Tablet PO SCH ×2 (08:52→11:14)
[2020-11-04] MEDS: Metoprolol XL (24 HR) Succ 25 MG TAB.ER.24H PO SCH ×2 (08:52→11:14)
[2020-11-04] MEDS: Metoclopramide 10 MG/10 ML UD.LIQ PO SCH ×3 (08:53→16:03)
[2020-11-04] MEDS: *HR* Metformin 500 MG TABLET PO SCH ×2 (11:01→11:13)
[2020-11-05] MEDS: Ringers Solution, Lactated 1,000 ML IVC SCH (01:50)
[2020-11-05] MEDS: Tiotropium 10 INH DOSE IH SCH (07:55)
[2020-11-05 08:11] LABS: INR 3.3; Prothrombin Time 36.6 Seconds (9.4-12.1)
[2020-11-05] MEDS: Multivit/Ca/Min/Fe/FA 1 TAB TABLET PO SCH (09:47)
[2020-11-05] MEDS: Sennosides/Docusate Sodium TABLET PO SCH ×2 (09:47→20:54)
[2020-11-05] MEDS: Metoclopramide 10 MG/10 ML UD.LIQ PO SCH ×3 (09:48→17:31)
[2020-11-05] MEDS: BuPROPion SR (12 HR) 150 MG TABLET PO SCH (09:48)
[2020-11-05] MEDS: Aspirin Enteric Coated 81 MG Tablet PO SCH (09:48)
[2020-11-05] MEDS: Cholecalciferol (D-3) 1,000 UNIT (25MCG) TABLET PO SCH ×2 (09:48→20:54)
[2020-11-05] MEDS: Metoprolol XL (24 HR) Succ 25 MG TAB.ER.24H PO SCH (09:48)
[2020-11-06] MEDS: Ringers Solution, Lactated 1,000 ML IVC SCH (03:36)
[2020-11-06 07:50] LABS: INR 2.5
[2020-11-06] MEDS: BuPROPion SR (12 HR) 150 MG TABLET PO SCH (09:22)
[2020-11-06] MEDS: Cholecalciferol (D-3) 1,000 UNIT (25MCG) TABLET PO SCH ×2 (09:23→21:31)
[2020-11-06] MEDS: Sennosides/Docusate Sodium TABLET PO SCH ×2 (09:23→21:31)
[2020-11-06] MEDS: Multivit/Ca/Min/Fe/FA 1 TAB TABLET PO SCH (09:24)
[2020-11-06] MEDS: Metoprolol XL (24 HR) Succ 25 MG TAB.ER.24H PO SCH (09:24)
[2020-11-06] MEDS: Metoclopramide 10 MG/10 ML UD.LIQ PO SCH ×3 (09:24→16:32)
[2020-11-06] MEDS: Aspirin Enteric Coated 81 MG Tablet PO SCH (09:24)
[2020-11-06] MEDS: Tiotropium 10 INH DOSE IH SCH (10:32)
[2020-11-06] MEDS ORDERED: *HR* Warfarin 1 MG TABLET PO ONE (18:00)
[2020-11-07] MEDS: Ondansetron ODT 4 MG TAB.RAPDIS SL PRN (06:42)
[2020-11-07 08:02] LABS: Hematocrit 32.2 % (37.5-50.1); Hemoglobin 10.3 g/dL (12.9-16.9); Mean Corpuscular Hemoglobin 30.7 pg (28.0-33.3); Mean Corpuscular Volume 96.1 fL (83.0-100.0); Mean Platelet Volume 12.3 fL (9.4-12.4); Platelet Count 126 K/mcL (140-400); Red Blood Count 3.35 M/mcL (4.19-5.50); Red Cell Distribution Width 16.9 % (11.5-14.5); White Blood Count 7.6 K/mcL (4.3-11.1)
[2020-11-07 08:44] LABS: INR 1.9
[2020-11-07 08:56] LABS: BUN/Creatinine Ratio 12 (6-26); Blood Urea Nitrogen 12 mg/dL (8-23); Calcium 7.8 mg/dL (8.6-10.3); Carbon Dioxide 27 mEq/L (23-29); Chloride 103 mEq/L (98-107); Glucose 81 mg/dL (70-105); Osmolality,Calculated 293 (280-300); Potassium 3.5 mEq/L (3.5-5.1); Sodium 142 mEq/L (136-145); eGFR For African Americans > 60 (> 60); eGFR For Non-African Americans > 60 (> 60)
[2020-11-07] MEDS: Sennosides/Docusate Sodium TABLET PO SCH ×2 (08:59→20:29)
[2020-11-07] MEDS: Tiotropium 10 INH DOSE IH SCH (10:32)
[2020-11-07] MEDS: Aspirin Enteric Coated 81 MG Tablet PO SCH (12:16)
[2020-11-07] MEDS: Metoclopramide 10 MG/10 ML UD.LIQ PO SCH ×3 (12:16→16:17)
[2020-11-07] MEDS: Multivit/Ca/Min/Fe/FA 1 TAB TABLET PO SCH (12:16)
[2020-11-07] MEDS: Metoprolol XL (24 HR) Succ 25 MG TAB.ER.24H PO SCH (12:16)
[2020-11-07] MEDS: BuPROPion SR (12 HR) 150 MG TABLET PO SCH (12:17)
[2020-11-07] MEDS: Cholecalciferol (D-3) 1,000 UNIT (25MCG) TABLET PO SCH ×2 (12:17→20:39)
[2020-11-07] MEDS ORDERED: *HR* Warfarin 2 MG TABLET PO ONE (18:00)
[2020-11-08 07:48] LABS: INR 2.1; Prothrombin Time 24.1 Seconds (9.4-12.1)
[2020-11-08] MEDS: Metoclopramide 10 MG/10 ML UD.LIQ PO SCH ×3 (07:52→16:43)
[2020-11-08] MEDS: BuPROPion SR (12 HR) 150 MG TABLET PO SCH (07:52)
[2020-11-08] MEDS: Aspirin Enteric Coated 81 MG Tablet PO SCH (07:52)
[2020-11-08] MEDS: Metoprolol XL (24 HR) Succ 25 MG TAB.ER.24H PO SCH (07:52)
[2020-11-08] MEDS: Sennosides/Docusate Sodium TABLET PO SCH ×2 (07:55→20:06)
[2020-11-08] MEDS: Multivit/Ca/Min/Fe/FA 1 TAB TABLET PO SCH (07:55)
[2020-11-08] MEDS: Cholecalciferol (D-3) 1,000 UNIT (25MCG) TABLET PO SCH ×2 (07:55→20:11)
[2020-11-08] MEDS: Tiotropium 10 INH DOSE IH SCH (10:13)
[2020-11-08] MEDS ORDERED: *HR* Warfarin 2 MG TABLET PO ONE (18:00)
[2020-11-09 09:24] LABS: INR 2.3
[2020-11-09] MEDS: Metoprolol XL (24 HR) Succ 25 MG TAB.ER.24H PO SCH (10:25)
[2020-11-09] MEDS: BuPROPion SR (12 HR) 150 MG TABLET PO SCH (10:25)
[2020-11-09] MEDS: Aspirin Enteric Coated 81 MG Tablet PO SCH (10:26)
[2020-11-09] MEDS: Multivit/Ca/Min/Fe/FA 1 TAB TABLET PO SCH (10:52)
[2020-11-09] MEDS: Sennosides/Docusate Sodium TABLET PO SCH ×2 (10:52→21:13)
[2020-11-09] MEDS: Cholecalciferol (D-3) 1,000 UNIT (25MCG) TABLET PO SCH ×2 (10:52→21:13)
[2020-11-09] MEDS: Tiotropium 10 INH DOSE IH SCH (17:44)
[2020-11-09] MEDS ORDERED: *HR* Warfarin 1 MG TABLET PO ONE (18:00)
[2020-11-10 07:33] LABS: INR 2.4; Prothrombin Time 27.6 Seconds (9.4-12.1)
[2020-11-10] MEDS: Cholecalciferol (D-3) 1,000 UNIT (25MCG) TABLET PO SCH ×2 (08:01→19:59)
[2020-11-10] MEDS: BuPROPion SR (12 HR) 150 MG TABLET PO SCH (08:01)
[2020-11-10] MEDS: Aspirin Enteric Coated 81 MG Tablet PO SCH (08:01)
[2020-11-10] MEDS: Sennosides/Docusate Sodium TABLET PO SCH ×2 (08:01→19:59)
[2020-11-10] MEDS: Multivit/Ca/Min/Fe/FA 1 TAB TABLET PO SCH (08:01)
[2020-11-10] MEDS: Metoprolol XL (24 HR) Succ 25 MG TAB.ER.24H PO SCH (08:02)
[2020-11-10] MEDS: Tiotropium 10 INH DOSE IH SCH (10:07)
[2020-11-10] MEDS: polyethylene glycoL 3350 17 GM POWD.PACK PO SCH (12:45)
[2020-11-10] MEDS ORDERED: *HR* Warfarin 2 MG TABLET PO ONE (18:00)
[2020-11-10] MEDS ORDERED: *HR* Warfarin 1 MG TABLET PO ONE (18:00)
[2020-11-11 07:24] LABS: Basophils % 0.5 %; Eosinophils # 0.5 K/mcL (0.0-0.6); Eosinophils % 7.3 %; Hematocrit 33.9 % (37.5-50.1); Hemoglobin 10.9 g/dL (12.9-16.9); Immature Granulocytes % 0.5 % (0-4); Lymphocytes # 1.2 K/mcL (0.6-4.6); Lymphocytes % 18.6 %; Mean Corpuscular HGB Conc 32.2 g/dL (31.6-35.5); Mean Corpuscular Hemoglobin 31.2 pg (28.0-33.3); Mean Corpuscular Volume 97.1 fL (83.0-100.0); Mean Platelet Volume 11.8 fL (9.4-12.4); Monocytes # 0.5 K/mcL (0.0-1.3); Monocytes % 8.1 %; Neutrophils # 4.1 K/mcL (1.6-8.9); Platelet Count 135 K/mcL (140-400); Red Blood Count 3.49 M/mcL (4.19-5.50); Red Cell Distribution Width 17.1 % (11.5-14.5); White Blood Count 6.3 K/mcL (4.3-11.1)
[2020-11-11 07:38] LABS: INR 2.3; Prothrombin Time 25.5 Seconds (9.4-12.1)
[2020-11-11 08:00] LABS: BUN/Creatinine Ratio 15 (6-26); Blood Urea Nitrogen 14 mg/dL (8-23); Calcium 8.1 mg/dL (8.6-10.3); Carbon Dioxide 30 mEq/L (23-29); Chloride 100 mEq/L (98-107); Glucose 97 mg/dL (70-105); Osmolality,Calculated 294 (280-300); Potassium 3.3 mEq/L (3.5-5.1); Sodium 142 mEq/L (136-145); eGFR For African Americans > 60 (> 60); eGFR For Non-African Americans > 60 (> 60)
[2020-11-11] MEDS ORDERED: Lactulose 200 GM, Sodium Chloride IRRigation 700 ML RC ONE (09:50)
[2020-11-11] MEDS: Tiotropium 10 INH DOSE IH SCH (10:18)
[2020-11-11] MEDS: BuPROPion SR (12 HR) 150 MG TABLET PO SCH (11:19)
[2020-11-11] MEDS: Aspirin Enteric Coated 81 MG Tablet PO SCH (11:19)
[2020-11-11] MEDS: Cholecalciferol (D-3) 1,000 UNIT (25MCG) TABLET PO SCH ×2 (11:20→20:07)
[2020-11-11] MEDS: polyethylene glycoL 3350 17 GM POWD.PACK PO SCH (11:20)
[2020-11-11] MEDS: Multivit/Ca/Min/Fe/FA 1 TAB TABLET PO SCH (11:20)
[2020-11-11] MEDS: Sennosides/Docusate Sodium TABLET PO SCH ×2 (11:24→20:07)
[2020-11-11] MEDS: Metoprolol XL (24 HR) Succ 25 MG TAB.ER.24H PO SCH (11:25)
[2020-11-11] MEDS: Ondansetron ODT 4 MG TAB.RAPDIS SL PRN (14:47)
[2020-11-11] MEDS ORDERED: *HR* Warfarin 1 MG TABLET PO ONE (18:00)
[2020-11-12 07:28] LABS: INR 2.3; Prothrombin Time 25.5 Seconds (9.4-12.1)
[2020-11-12] MEDS: Metoprolol XL (24 HR) Succ 25 MG TAB.ER.24H PO SCH (08:04)
[2020-11-12] MEDS: Cholecalciferol (D-3) 1,000 UNIT (25MCG) TABLET PO SCH ×2 (08:05→20:30)
[2020-11-12] MEDS: Aspirin Enteric Coated 81 MG Tablet PO SCH (08:05)
[2020-11-12] MEDS: Multivit/Ca/Min/Fe/FA 1 TAB TABLET PO SCH (08:05)
[2020-11-12] MEDS: Metoclopramide 10 MG/10 ML UD.LIQ PO SCH ×3 (08:05→16:50)
[2020-11-12] MEDS: Sennosides/Docusate Sodium TABLET PO SCH ×2 (08:05→20:30)
[2020-11-12] MEDS: BuPROPion SR (12 HR) 150 MG TABLET PO SCH (08:05)
[2020-11-12] MEDS: polyethylene glycoL 3350 17 GM POWD.PACK PO SCH (08:06)
[2020-11-12] MEDS ORDERED: Ringers Solution, Lactated 500 ML IVC ONE (09:01)
[2020-11-12] MEDS: Tiotropium 10 INH DOSE IH SCH (10:19)
[2020-11-12] MEDS: Ringers Solution, Lactated 1,000 ML IVC SCH ×2 (12:34→23:18)
[2020-11-12] MEDS ORDERED: *HR* Warfarin 1 MG TABLET PO ONE (18:00)
[2020-11-12] MEDS ORDERED: Vancomycin 2,000 MG/520 ML IV.SOLN IVPB ONE (18:19)
[2020-11-12] MEDS ORDERED: cefTRIAXone 2,000 MG in 0.9 % Sodium Chloride Mini Bag 100 ML IVPB ONE (20:00)
[2020-11-13] MEDS: Ringers Solution, Lactated 1,000 ML IVC SCH ×3 (06:29→22:04)
[2020-11-13 07:07] LABS: Basophils % 0.3 %; Eosinophils # 0.5 K/mcL (0.0-0.6); Eosinophils % 7.4 %; Hemoglobin 10.5 g/dL (12.9-16.9); Lymphocytes # 1.2 K/mcL (0.6-4.6); Lymphocytes % 18.9 %; Mean Corpuscular HGB Conc 31.8 g/dL (31.6-35.5); Mean Corpuscular Hemoglobin 30.9 pg (28.0-33.3); Mean Corpuscular Volume 97.1 fL (83.0-100.0); Mean Platelet Volume 11.7 fL (9.4-12.4); Monocytes # 0.6 K/mcL (0.0-1.3); Monocytes % 10.3 %; Neutrophils # 3.8 K/mcL (1.6-8.9); Platelet Count 138 K/mcL (140-400); Segmented Neutrophils % 62.1 %; White Blood Count 6.1 K/mcL (4.3-11.1)
[2020-11-13 07:21] LABS: INR 2.2; Prothrombin Time 24.8 Seconds (9.4-12.1)
[2020-11-13 07:30] LABS: Alanine Aminotransferase 8 Units/L (7-52); Albumin 2.7 g/dL (3.5-5.7); Albumin/Globulin Ratio 1.1 (1.1-2.2); Alkaline Phosphatase 41 Units/L (34-104); Aspartate Amino Transferase 13 Units/L (13-39); BUN/Creatinine Ratio 14 (6-26); Bilirubin,Total 0.8 mg/dL (0.3-1.0); Blood Urea Nitrogen 13 mg/dL (8-23); Calcium 7.9 mg/dL (8.6-10.3); Carbon Dioxide 28 mEq/L (23-29); Chloride 101 mEq/L (98-107); Globulin 2.4 g/dL (2.4-3.5); Glucose 96 mg/dL (70-105); Osmolality,Calculated 292 (280-300); Potassium 3.4 mEq/L (3.5-5.1); Sodium 141 mEq/L (136-145); Total Protein 5.1 g/dL (6.4-8.9); eGFR For African Americans > 60 (> 60); eGFR For Non-African Americans > 60 (> 60)
[2020-11-13] MEDS: Tiotropium 10 INH DOSE IH SCH (10:45)
[2020-11-13] MEDS: Sennosides/Docusate Sodium TABLET PO SCH ×2 (11:50→19:50)
[2020-11-13] MEDS: Metoprolol XL (24 HR) Succ 25 MG TAB.ER.24H PO SCH (11:51)
[2020-11-13] MEDS: Aspirin Enteric Coated 81 MG Tablet PO SCH (11:51)
[2020-11-13] MEDS: Cholecalciferol (D-3) 1,000 UNIT (25MCG) TABLET PO SCH ×2 (11:51→19:50)
[2020-11-13] MEDS: BuPROPion SR (12 HR) 150 MG TABLET PO SCH (11:51)
[2020-11-13] MEDS: Multivit/Ca/Min/Fe/FA 1 TAB TABLET PO SCH (11:52)
[2020-11-13] MEDS: polyethylene glycoL 3350 17 GM POWD.PACK PO SCH (11:55)
[2020-11-13] MEDS: Metoclopramide 10 MG/10 ML UD.LIQ PO SCH ×3 (11:56→16:24)
[2020-11-13] MEDS: levoFLOXacin 750 MG TABLET PO SCH (11:58)
[2020-11-13] MEDS ORDERED: *HR* Warfarin 1 MG TABLET PO ONE (18:00)
[2020-11-13] MEDS ORDERED: cefTRIAXone 1,000 MG in 0.9 % Sodium Chloride Mini Bag 100 ML IVPB SCH (21:00)
[2020-11-13] MEDS ORDERED: Vancomycin 1,500 MG/265 ML IV.SOLN IVPB SCH (21:00)
[2020-11-14] MEDS: Ringers Solution, Lactated 1,000 ML IVC SCH ×3 (05:33→17:08)
[2020-11-14 07:11] LABS: INR 2.5; Prothrombin Time 28.3 Seconds (9.4-12.1)
[2020-11-14] MEDS: Metoclopramide 10 MG/10 ML UD.LIQ PO SCH ×3 (08:31→17:08)
[2020-11-14] MEDS: Sennosides/Docusate Sodium TABLET PO SCH ×2 (08:31→20:35)
[2020-11-14] MEDS: Metoprolol XL (24 HR) Succ 25 MG TAB.ER.24H PO SCH (08:32)
[2020-11-14] MEDS: levoFLOXacin 750 MG TABLET PO SCH (08:32)
[2020-11-14] MEDS: Multivit/Ca/Min/Fe/FA 1 TAB TABLET PO SCH (08:32)
[2020-11-14] MEDS: BuPROPion SR (12 HR) 150 MG TABLET PO SCH (08:32)
[2020-11-14] MEDS: Aspirin Enteric Coated 81 MG Tablet PO SCH (08:32)
[2020-11-14] MEDS: Cholecalciferol (D-3) 1,000 UNIT (25MCG) TABLET PO SCH ×2 (08:32→20:36)
[2020-11-14] MEDS: polyethylene glycoL 3350 17 GM POWD.PACK PO SCH (08:32)
[2020-11-14] MEDS: Tiotropium 10 INH DOSE IH SCH (09:01)
[2020-11-14] MEDS: Ondansetron 4 MG/2 ML VIAL IVP PRN (09:53)
[2020-11-14] MEDS ORDERED: *HR* Warfarin 1 MG TABLET PO ONE (18:00)
[2020-11-15 07:26] LABS: INR 2.3; Prothrombin Time 25.5 Seconds (9.4-12.1)
[2020-11-15] MEDS: Sennosides/Docusate Sodium TABLET PO SCH ×2 (08:42→20:26)
[2020-11-15] MEDS: levoFLOXacin 750 MG TABLET PO SCH (08:42)
[2020-11-15] MEDS: Cholecalciferol (D-3) 1,000 UNIT (25MCG) TABLET PO SCH ×2 (08:42→20:26)
[2020-11-15] MEDS: Metoclopramide 10 MG/10 ML UD.LIQ PO SCH ×3 (08:42→16:33)
[2020-11-15] MEDS: polyethylene glycoL 3350 17 GM POWD.PACK PO SCH (08:42)
[2020-11-15] MEDS: Aspirin Enteric Coated 81 MG Tablet PO SCH (08:42)
[2020-11-15] MEDS: Multivit/Ca/Min/Fe/FA 1 TAB TABLET PO SCH (08:42)
[2020-11-15] MEDS: Ringers Solution, Lactated 1,000 ML IVC SCH ×2 (08:42→22:23)
[2020-11-15] MEDS: Metoprolol XL (24 HR) Succ 25 MG TAB.ER.24H PO SCH (08:43)
[2020-11-15] MEDS: BuPROPion SR (12 HR) 150 MG TABLET PO SCH (08:43)
[2020-11-15] MEDS: Tiotropium 10 INH DOSE IH SCH (08:57)
[2020-11-15] MEDS: Ondansetron 4 MG/2 ML VIAL IVP PRN (09:50)
[2020-11-15] MEDS: GuaiFENesin/Dextromethorphan TABLET PO PRN (11:49)
[2020-11-15] MEDS ORDERED: *HR* Warfarin 1 MG TABLET PO ONE (18:00)
[2020-11-16 07:26] LABS: INR 1.8; Prothrombin Time 20.8 Seconds (9.4-12.1)
[2020-11-16] MEDS: Tiotropium 10 INH DOSE IH SCH (08:48)
[2020-11-16] MEDS ORDERED: Lactulose 200 GM, Sodium Chloride IRRigation 700 ML RC ONE (10:29)
[2020-11-16] MEDS: Metoclopramide 10 MG/10 ML UD.LIQ PO SCH ×3 (10:37→16:56)
[2020-11-16] MEDS: levoFLOXacin 750 MG TABLET PO SCH (10:38)
[2020-11-16] MEDS: Metoprolol XL (24 HR) Succ 25 MG TAB.ER.24H PO SCH (10:38)
[2020-11-16] MEDS: BuPROPion SR (12 HR) 150 MG TABLET PO SCH (10:38)
[2020-11-16] MEDS: Cholecalciferol (D-3) 1,000 UNIT (25MCG) TABLET PO SCH ×2 (10:38→21:11)
[2020-11-16] MEDS: polyethylene glycoL 3350 17 GM POWD.PACK PO SCH (10:38)
[2020-11-16] MEDS: Sennosides/Docusate Sodium TABLET PO SCH ×2 (10:38→21:11)
[2020-11-16] MEDS: Aspirin Enteric Coated 81 MG Tablet PO SCH (10:38)
[2020-11-16] MEDS: Multivit/Ca/Min/Fe/FA 1 TAB TABLET PO SCH (10:38)
[2020-11-16] MEDS ORDERED: *HR* Warfarin 2 MG TABLET PO ONE (18:00)
[2020-11-17 06:26] LABS: Basophils % 0.3 %; Eosinophils # 0.6 K/mcL (0.0-0.6); Eosinophils % 9.2 %; Hemoglobin 10.2 g/dL (12.9-16.9); Immature Granulocytes % 1.5 % (0-4); Lymphocytes # 1.3 K/mcL (0.6-4.6); Mean Corpuscular HGB Conc 31.9 g/dL (31.6-35.5); Mean Corpuscular Hemoglobin 31.1 pg (28.0-33.3); Mean Corpuscular Volume 97.6 fL (83.0-100.0); Monocytes # 0.6 K/mcL (0.0-1.3); Monocytes % 10.1 %; Neutrophils # 3.5 K/mcL (1.6-8.9); Platelet Count 123 K/mcL (140-400); Red Blood Count 3.28 M/mcL (4.19-5.50); Red Cell Distribution Width 17.4 % (11.5-14.5); Segmented Neutrophils % 57.9 %; White Blood Count 6.1 K/mcL (4.3-11.1)
[2020-11-17 06:41] LABS: Prothrombin Time 22.3 Seconds (9.4-12.1)
[2020-11-17 06:52] LABS: Magnesium 1.6 mg/dL (1.6-2.6); Phosphorous 2.1 mg/dL (2.7-4.5)
[2020-11-17 06:53] LABS: Alanine Aminotransferase 10 Units/L (7-52); Albumin 2.7 g/dL (3.5-5.7); Albumin/Globulin Ratio 1.2 (1.1-2.2); Alkaline Phosphatase 43 Units/L (34-104); Aspartate Amino Transferase 16 Units/L (13-39); BUN/Creatinine Ratio 9 (6-26); Bilirubin,Total 0.8 mg/dL (0.3-1.0); Blood Urea Nitrogen 9 mg/dL (8-23); Calcium 7.9 mg/dL (8.6-10.3); Carbon Dioxide 32 mEq/L (23-29); Chloride 102 mEq/L (98-107); Globulin 2.3 g/dL (2.4-3.5); Glucose 94 mg/dL (70-105); Osmolality,Calculated 292 (280-300); Potassium 3.5 mEq/L (3.5-5.1); Sodium 142 mEq/L (136-145); eGFR For African Americans > 60 (> 60); eGFR For Non-African Americans > 60 (> 60)
[2020-11-17] MEDS: Aspirin Enteric Coated 81 MG Tablet PO SCH (07:41)
[2020-11-17] MEDS: Metoclopramide 10 MG/10 ML UD.LIQ PO SCH ×3 (07:41→16:36)
[2020-11-17] MEDS: Sennosides/Docusate Sodium TABLET PO SCH ×2 (07:42→22:05)
[2020-11-17] MEDS: polyethylene glycoL 3350 17 GM POWD.PACK PO SCH (07:42)
[2020-11-17] MEDS: Metoprolol XL (24 HR) Succ 25 MG TAB.ER.24H PO SCH (07:42)
[2020-11-17] MEDS: levoFLOXacin 750 MG TABLET PO SCH (07:42)
[2020-11-17] MEDS: Cholecalciferol (D-3) 1,000 UNIT (25MCG) TABLET PO SCH ×2 (07:42→22:05)
[2020-11-17] MEDS: BuPROPion SR (12 HR) 150 MG TABLET PO SCH (07:42)
[2020-11-17] MEDS: Multivit/Ca/Min/Fe/FA 1 TAB TABLET PO SCH (07:42)
[2020-11-17] MEDS: Tiotropium 10 INH DOSE IH SCH (11:03)
[2020-11-17] MEDS ORDERED: traZODone 50 MG TABLET PO PRN (14:55)
[2020-11-17] MEDS ORDERED: *HR* Warfarin 2 MG TABLET PO ONE (18:00)
[2020-11-18 07:12] LABS: Prothrombin Time 23.2 Seconds (9.4-12.1)
[2020-11-18] MEDS: Metoclopramide 10 MG/10 ML UD.LIQ PO SCH ×3 (09:42→16:22)
[2020-11-18] MEDS: Cholecalciferol (D-3) 1,000 UNIT (25MCG) TABLET PO SCH ×2 (09:42→20:26)
[2020-11-18] MEDS: polyethylene glycoL 3350 17 GM POWD.PACK PO SCH (09:44)
[2020-11-18] MEDS: Sennosides/Docusate Sodium TABLET PO SCH ×2 (09:44→20:26)
[2020-11-18] MEDS: Metoprolol XL (24 HR) Succ 25 MG TAB.ER.24H PO SCH (09:44)
[2020-11-18] MEDS: Aspirin Enteric Coated 81 MG Tablet PO SCH (09:44)
[2020-11-18] MEDS: levoFLOXacin 750 MG TABLET PO SCH (09:44)
[2020-11-18] MEDS: Multivit/Ca/Min/Fe/FA 1 TAB TABLET PO SCH (09:44)
[2020-11-18] MEDS: BuPROPion SR (12 HR) 150 MG TABLET PO SCH (09:44)
[2020-11-18] MEDS: Tiotropium 10 INH DOSE IH SCH (10:09)
[2020-11-18] MEDS: Ondansetron ODT 4 MG TAB.RAPDIS SL PRN (13:08)
[2020-11-18] MEDS ORDERED: Lactulose 200 GM, Sodium Chloride IRRigation 700 ML RC ONE (14:38)
[2020-11-18] MEDS ORDERED: *HR* Warfarin 2 MG TABLET PO ONE (18:00)
[2020-11-19 05:45] LABS: Alanine Aminotransferase 14 Units/L (7-52); Albumin 2.6 g/dL (3.5-5.7); Albumin/Globulin Ratio 1.2 (1.1-2.2); Alkaline Phosphatase 43 Units/L (34-104); Aspartate Amino Transferase 20 Units/L (13-39); BUN/Creatinine Ratio 10 (6-26); Bilirubin,Total 0.7 mg/dL (0.3-1.0); Blood Urea Nitrogen 10 mg/dL (8-23); Calcium 7.9 mg/dL (8.6-10.3); Carbon Dioxide 35 mEq/L (23-29); Chloride 101 mEq/L (98-107); Globulin 2.2 g/dL (2.4-3.5); Glucose 98 mg/dL (70-105); Osmolality,Calculated 293 (280-300); Phosphorous 2.7 mg/dL (2.7-4.5); Potassium 3.4 mEq/L (3.5-5.1); Sodium 142 mEq/L (136-145); Total Protein 4.8 g/dL (6.4-8.9); eGFR For African Americans > 60 (> 60); eGFR For Non-African Americans > 60 (> 60)
[2020-11-19] MEDS: Metoclopramide 10 MG/10 ML UD.LIQ PO SCH ×3 (08:16→17:09)
[2020-11-19] MEDS: Cholecalciferol (D-3) 1,000 UNIT (25MCG) TABLET PO SCH ×2 (08:18→20:44)
[2020-11-19] MEDS: levoFLOXacin 750 MG TABLET PO SCH (08:18)
[2020-11-19] MEDS: Sennosides/Docusate Sodium TABLET PO SCH ×2 (08:18→20:44)
[2020-11-19] MEDS: Multivit/Ca/Min/Fe/FA 1 TAB TABLET PO SCH (08:18)
[2020-11-19] MEDS: Metoprolol XL (24 HR) Succ 25 MG TAB.ER.24H PO SCH (08:18)
[2020-11-19] MEDS: Aspirin Enteric Coated 81 MG Tablet PO SCH (08:18)
[2020-11-19] MEDS: polyethylene glycoL 3350 17 GM POWD.PACK PO SCH (08:19)
[2020-11-19] MEDS: BuPROPion SR (12 HR) 150 MG TABLET PO SCH (08:19)
[2020-11-19] MEDS: Tiotropium 10 INH DOSE IH SCH (09:24)
[2020-11-19 11:40] LABS: INR 2.1; Prothrombin Time 23.8 Seconds (9.4-12.1)
[2020-11-19] MEDS ORDERED: *HR* Warfarin 2 MG TABLET PO ONE (18:00)
[2020-11-20] MEDS: Ondansetron ODT 4 MG TAB.RAPDIS SL PRN (04:39)
[2020-11-20 05:25] LABS: INR 1.8; Prothrombin Time 20.6 Seconds (9.4-12.1)
[2020-11-20] MEDS: Tiotropium 10 INH DOSE IH SCH (09:25)
[2020-11-20] MEDS: BuPROPion SR (12 HR) 150 MG TABLET PO SCH (11:15)
[2020-11-20] MEDS: Metoprolol XL (24 HR) Succ 25 MG TAB.ER.24H PO SCH (11:15)
[2020-11-20] MEDS: Metoclopramide 10 MG/10 ML UD.LIQ PO SCH ×2 (11:19→12:10)
[2020-11-20] MEDS: Sennosides/Docusate Sodium TABLET PO SCH ×2 (11:19→19:58)
[2020-11-20] MEDS: Aspirin Enteric Coated 81 MG Tablet PO SCH (11:19)
[2020-11-20] MEDS: Multivit/Ca/Min/Fe/FA 1 TAB TABLET PO SCH (11:19)
[2020-11-20] MEDS: polyethylene glycoL 3350 17 GM POWD.PACK PO SCH (11:19)
[2020-11-20] MEDS: Cholecalciferol (D-3) 1,000 UNIT (25MCG) TABLET PO SCH ×2 (11:20→21:09)
[2020-11-20] MEDS: Lactulose Oral Soln 20 GM/30 ML UDC PO SCH ×2 (14:43→19:58)
[2020-11-20] MEDS ORDERED: *HR* Warfarin 2 MG TABLET PO ONE (18:00)
[2020-11-20] MEDS: Mirtazapine 15 MG TABLET PO SCH (19:57)
[2020-11-21 07:47] LABS: INR 1.9; Prothrombin Time 21.6 Seconds (9.4-12.1)
[2020-11-21] MEDS: Lactulose Oral Soln 20 GM/30 ML UDC PO SCH ×2 (10:20→20:54)
[2020-11-21] MEDS: polyethylene glycoL 3350 17 GM POWD.PACK PO SCH (10:21)
[2020-11-21] MEDS: Sennosides/Docusate Sodium TABLET PO SCH ×2 (10:23→20:52)
[2020-11-21] MEDS: Multivit/Ca/Min/Fe/FA 1 TAB TABLET PO SCH (10:23)
[2020-11-21] MEDS: BuPROPion SR (12 HR) 150 MG TABLET PO SCH (10:23)
[2020-11-21] MEDS: Cholecalciferol (D-3) 1,000 UNIT (25MCG) TABLET PO SCH ×2 (10:24→20:52)
[2020-11-21] MEDS: Aspirin Enteric Coated 81 MG Tablet PO SCH (10:24)
[2020-11-21] MEDS: Metoprolol XL (24 HR) Succ 25 MG TAB.ER.24H PO SCH (10:24)
[2020-11-21] MEDS: Tiotropium 10 INH DOSE IH SCH (10:47)
[2020-11-21] MEDS ORDERED: *HR* Warfarin 2 MG TABLET PO SCH (18:00)
[2020-11-21] MEDS: Mirtazapine 15 MG TABLET PO SCH (20:53)
[2020-11-22 07:26] LABS: INR 2.1; Prothrombin Time 23.4 Seconds (9.4-12.1)
[2020-11-22] MEDS: Tiotropium 10 INH DOSE IH SCH (10:21)
[2020-11-22] MEDS: polyethylene glycoL 3350 17 GM POWD.PACK PO SCH (10:26)
[2020-11-22] MEDS: Aspirin Enteric Coated 81 MG Tablet PO SCH (10:27)
[2020-11-22] MEDS: Lactulose Oral Soln 20 GM/30 ML UDC PO SCH ×2 (10:27→21:30)
[2020-11-22] MEDS: Multivit/Ca/Min/Fe/FA 1 TAB TABLET PO SCH (10:27)
[2020-11-22] MEDS: Cholecalciferol (D-3) 1,000 UNIT (25MCG) TABLET PO SCH ×2 (10:27→21:13)
[2020-11-22] MEDS: BuPROPion SR (12 HR) 150 MG TABLET PO SCH (10:27)
[2020-11-22] MEDS: Metoprolol XL (24 HR) Succ 25 MG TAB.ER.24H PO SCH (10:27)
[2020-11-22] MEDS: Sennosides/Docusate Sodium TABLET PO SCH ×2 (10:28→21:12)
[2020-11-22] MEDS ORDERED: *HR* Warfarin 2 MG TABLET PO ONE (18:00)
[2020-11-22] MEDS: Mirtazapine 15 MG TABLET PO SCH (21:13)
[2020-11-22] MEDS: GuaiFENesin/Dextromethorphan TABLET PO PRN (21:13)
[2020-11-23 07:47] LABS: INR 2.2; Prothrombin Time 25.4 Seconds (9.4-12.1)
[2020-11-23] MEDS: Sennosides/Docusate Sodium TABLET PO SCH ×2 (09:43→20:28)
[2020-11-23] MEDS: BuPROPion SR (12 HR) 150 MG TABLET PO SCH (09:43)
[2020-11-23] MEDS: Aspirin Enteric Coated 81 MG Tablet PO SCH (09:43)
[2020-11-23] MEDS: Multivit/Ca/Min/Fe/FA 1 TAB TABLET PO SCH (09:43)
[2020-11-23] MEDS: polyethylene glycoL 3350 17 GM POWD.PACK PO SCH (09:44)
[2020-11-23] MEDS: Cholecalciferol (D-3) 1,000 UNIT (25MCG) TABLET PO SCH ×2 (09:44→20:26)
[2020-11-23] MEDS: Lactulose Oral Soln 20 GM/30 ML UDC PO SCH ×3 (09:44→20:27)
[2020-11-23] MEDS: Metoprolol XL (24 HR) Succ 25 MG TAB.ER.24H PO SCH (09:44)
[2020-11-23 10:15] LABS: Basophils % 0.2 %; Eosinophils # 0.6 K/mcL (0.0-0.6); Eosinophils % 11.8 %; Hematocrit 35.6 % (37.5-50.1); Hemoglobin 11.1 g/dL (12.9-16.9); Immature Granulocytes % 0.6 % (0-4); Lymphocytes # 1.2 K/mcL (0.6-4.6); Lymphocytes % 22.7 %; Mean Corpuscular HGB Conc 31.2 g/dL (31.6-35.5); Mean Corpuscular Hemoglobin 31.1 pg (28.0-33.3); Mean Corpuscular Volume 99.7 fL (83.0-100.0); Mean Platelet Volume 12.2 fL (9.4-12.4); Monocytes # 0.4 K/mcL (0.0-1.3); Monocytes % 8.1 %; Neutrophils # 3.1 K/mcL (1.6-8.9); Platelet Count 115 K/mcL (140-400); Red Blood Count 3.57 M/mcL (4.19-5.50); Red Cell Distribution Width 18.1 % (11.5-14.5); Segmented Neutrophils % 56.6 %; White Blood Count 5.4 K/mcL (4.3-11.1)
[2020-11-23 11:01] LABS: Alanine Aminotransferase 10 Units/L (7-52); Albumin 2.6 g/dL (3.5-5.7); Albumin/Globulin Ratio 1.1 (1.1-2.2); Alkaline Phosphatase 45 Units/L (34-104); Aspartate Amino Transferase 15 Units/L (13-39); BUN/Creatinine Ratio 13 (6-26); Bilirubin,Total 0.9 mg/dL (0.3-1.0); Blood Urea Nitrogen 13 mg/dL (8-23); Carbon Dioxide 36 mEq/L (23-29); Chloride 103 mEq/L (98-107); Globulin 2.4 g/dL (2.4-3.5); Glucose 124 mg/dL (70-105); Osmolality,Calculated 300 (280-300); Potassium 3.6 mEq/L (3.5-5.1); Sodium 144 mEq/L (136-145); eGFR For African Americans > 60 (> 60); eGFR For Non-African Americans > 60 (> 60)
[2020-11-23] MEDS: Tiotropium 10 INH DOSE IH SCH (11:08)
[2020-11-23] MEDS ORDERED: *HR* Warfarin 2 MG TABLET PO ONE (18:00)
[2020-11-23] MEDS: Ringers Solution, Lactated 1,000 ML IVC SCH (19:21)
[2020-11-23] MEDS: Mirtazapine 15 MG TABLET PO SCH (20:25)
[2020-11-23] MEDS: GuaiFENesin/Dextromethorphan TABLET PO PRN (20:25)
[2020-11-24] MEDS: Ringers Solution, Lactated 1,000 ML IVC SCH ×2 (03:19→14:11)
[2020-11-24 06:52] VITALS: BP 128/77
[2020-11-24 07:18] LABS: INR 2.4; Prothrombin Time 27.4 Seconds (9.4-12.1)
[2020-11-24] MEDS: Multivit/Ca/Min/Fe/FA 1 TAB TABLET PO SCH (07:44)
[2020-11-24] MEDS: Aspirin Enteric Coated 81 MG Tablet PO SCH (07:45)
[2020-11-24] MEDS: Metoprolol XL (24 HR) Succ 25 MG TAB.ER.24H PO SCH (07:45)
[2020-11-24] MEDS: Lactulose Oral Soln 20 GM/30 ML UDC PO SCH (07:45)
[2020-11-24] MEDS: BuPROPion SR (12 HR) 150 MG TABLET PO SCH (07:45)
[2020-11-24] MEDS: Cholecalciferol (D-3) 1,000 UNIT (25MCG) TABLET PO SCH (07:45)
[2020-11-24] MEDS: Sennosides/Docusate Sodium TABLET PO SCH (07:45)
[2020-11-24] MEDS: Tiotropium 10 INH DOSE IH SCH (09:25)
[2020-11-24] MEDS ORDERED: *HR* Warfarin 3 MG TABLET PO ONE (18:00)
== END 2020-11-24 15:40 | disposition hospice, home (50) | DRG 945 ==
LOC: INPPIK 19:38
PROVIDERS: ADMIT Family Medicine; ATTEND Family Medicine